=== PATIENT | female | born 1965 | race Caucasian/White ===

== ENCOUNTER → 2023-12-05 | Outpatient (CLI) | payer MEDICARE, MEDICAID ==
[~2023-12-05] MED LIST: PERCOCET 325 MG1 TAB PO
== END ==
LOC: COL.RAD 08:58
DX: K59.04 Chronic idiopathic constipation (principal)

== ENCOUNTER → 2023-12-10 | Outpatient (CLI) | payer MEDICARE, MEDICAID | LOC: COL.RAD 08:57 | DX: K59.04 Chronic idiopathic constipation (principal) ==

== ENCOUNTER 2024-06-03 07:13 | Emergency (ER) | payer MEDICARE, MEDICAID ==
[~2024-06-03] VITALS: Ht 170.2 cm; Wt 86.4 kg
[2024-06-03 07:14] VITALS: TEMP 97.8
[2024-06-03 09:38] LABS: BASO # 0.1 K/mm3 (0.0-0.2); BASO % 0.7 % (0.0-2.0); EOS # 0.2 K/mm3 (0.0-0.7); EOS % 2.5 % (0.0-4.0); GRAN # 4.3 K/mm3 (1.4-6.5); GRAN % 63.4 % (42.2-75.2); HEMATOCRIT 40.6 % (37.0-47.0); HEMOGLOBIN 13.5 g/dl (12.5-16.0); LYMPH # 1.7 K/mm3 (1.2-3.4); MEAN CELL VOLUME 85 fl (80.0-100.0); MEAN CORPUSCULAR HEMOGLOBIN 28 pg (27-31); MEAN CORPUSCULAR HGB CONC 33 g/dl (33.0-37.0); MEAN PLATELET VOLUME 8.6 fl (7.4-10.4); MONO # 0.5 K/mm3 (0.1-0.6); PLATELET COUNT 282 K/mm3 (130-400); RED BLOOD COUNT 4.78 M/mm3 (4.10-5.30); REDCELL DISTRIBUTION WIDTH-CV 13.4 % (11.5-14.5)
[2024-06-03 10:08] LABS: BILIRUBIN,TOTAL 0.2 mg/dL (0.2-1.2); CALCIUM 8.8 mg/dL (8.4-10.2); CREATININE, serum 0.76 mg/dL (0.57-1.11); POTASSIUM 3.9 mEq/L (3.5-4.5); TOTAL PROTEIN 6.2 g/dl (6.2-8.1)
[2024-06-03 10:24] LABS: URINE APPEARANCE CLEAR (CLEAR/HAZY); URINE BLOOD NEGATIVE (NEGATIVE); URINE COLOR Dark Yellow (YELLOW); URINE GLUCOSE NEGATIVE (NEGATIVE); URINE KETONE TRACE (NEGATIVE); URINE NITRATE NEGATIVE (NEGATIVE); URINE PROTEIN(semi-quant) 1+ (NEGATIVE)
[2024-06-03 10:59] LABS: COLLECTION METHOD CATHETER; URINE WBC 0-2 /hpf (0-2)
[2024-06-03 11:00] LABS: URINE BACTERIA RARE /hpf (NONE SEEN); URINE CALCIUM OXALATE CRYSTAL PRESENT (NOT PRESENT); URINE RBC 0-2 /hpf (0-2)
[2024-06-03] MEDS ORDERED: NORCO 325 MG-51 TAB PO (11:34)
[2024-06-03 11:48] VITALS: BP 133/99; PULSE 97
--- NOTE | 2024-06-03 14:13 | NUR ---
Accreditation Coordinator was notified by LEONARD Jaime that patient's daughter, Esther (ph#[phone]) called in requesting assistance with fci placement for her mom, who was brought into ED after a fall. LEONARD contacted Esther who advised patient had been falling a lot at home and she did not feel she could meet patient's needs at home anymore. Esther stated she did not feel comfortable leaving patient home alone. Patient has Medicare A/B and Medicaid [employer]. Esther stated her [employer] CM is Sheeba Sinha (ph#[phone]). Esther reported patient was at [facility] in [place] in March, however Esther does not want patient to go back there as they did not have a good experience. Esther requested referrals be sent to [facility], [facility], [facility], [facility] and [facility]. Patient was cleared for discharge and Esther was agreeable to take her home and continue to work on placement. Patient has a CARE Assessment scheduled with the [employer] for tomorrow. LEONARD contacted [facility], [facility] and [facility] and sent them each the referral. LEONARD notified each referral that patient would be discharged home with daughter and would have a CARE completed tomorrow. Prabhjot at [facility] and Dulce at [facility] stated they would contact daughter. LEONARD also contacted LEONARD Yoon at patient's PCP office to provide the above update and request assistance with follow up.
== END 2024-06-03 11:48 | disposition home or self-care (01) ==
LOC: COL.ER 07:13
PROVIDERS: Family Medicine
DX: M54.50 Low back pain, unspecified (principal); M25.572 Pain in left ankle and joints of left foot; M62.59 Muscle wasting and atrophy, not elsewhere classified, multiple sites; W18.30XA Fall on same level, unspecified, initial encounter; Y92.009 Unspecified place in unspecified non-institutional (private) residence as the place of occurrence of the external cause